=== PATIENT | female | born 1995 | race Two or more races ===

== ENCOUNTER 2017-02-03 20:04 | Emergency (ER) | payer SELFPAY ==
[~2017-02-03] VITALS: Ht 177.8 cm; Wt 104.3 kg
[2017-02-03 20:17] VITALS: BP 153/103
[2017-02-03] MEDS ORDERED: CYCL10TA2 PO (20:43)
[2017-02-03] MEDS ORDERED: IBUP-1060 PO (20:43)
--- NOTE | 2017-02-03 20:43 | PHYS DOC ---
Past Medical History Past Medical History: No Pertinent History Past Surgical History: Appendectomy Alcohol Use: Occasionally Drug Use: None Adult General Chief Complaint Chief Complaint: BACK PAIN OR INJURY [facility] HPI Patient is a 21 year old female presents to the emergency department stating that she has having left lower back pain and discomfort. She states the pain goes across her lower back area. She denies any loss of bowel or bladder. She denies any numbness or tingling down to her lower extremities. She does state however the back pain causes her to have increased difficulty with standing. Patient states that she took ibuprofen at home earlier approximately 800 mg. She states that she will with pain around 1:00. She states that she did lay back down and the pain seemed to alleviate some. However she states that she got up and started moving around the pain increased. Patient denies any history of back problems in the past. Review of Systems Review of Systems Constitutional: Denies fever or chills [] Eyes: Denies change in visual acuity, redness, or eye pain [] HENT: Denies nasal congestion or sore throat [] Respiratory: Denies cough or shortness of breath [] Cardiovascular: No additional information not addressed in HPI [] GI: Denies abdominal pain, nausea, vomiting, bloody stools or diarrhea [] : Denies dysuria or hematuria [] Musculoskeletal: back pain denies joint pain [] Integument: Denies rash or skin lesions [] Neurologic: Denies headache, focal weakness or sensory changes [] Endocrine: Denies polyuria or polydipsia [] Allergies Allergies Allergies Coded Allergies Type Severity Reaction Last Updated Verified No Known Drug Allergies 02/03/17 No Physical Exam Physical Exam Constitutional: Well developed, well nourished, no acute distress, non-toxic appearance. [] HENT: Normocephalic, atraumatic, bilateral external ears normal, oropharynx moist, no oral exudates, nose normal. [] Eyes: PERRLA, EOMI, conjunctiva normal, no discharge. [] Neck: Normal range of motion, no tenderness, supple, no stridor. [] Cardiovascular:Heart rate regular rhythm, no murmur [] Lungs & Thorax: Bilateral breath sounds clear to auscultation [] Skin: Warm, dry, no erythema, no rash. [] Back: left lower back tenderness, no thoracic spine or lumbar spine tenderness no crepitus no deformities and no step-offs noted. Extremities: No tenderness, no cyanosis, no clubbing, ROM intact, no edema. Patient with the inability to perform left leg raise completely. Patient has no difficulty with right leg raise. Peripheral pulses 2+ cap refill brisk less than 2 seconds. Neurologic: Alert and oriented X 3, normal motor function, normal sensory function, no focal deficits noted. [] Psychologic: Affect normal, judgement normal, mood normal. [] Current Patient Data Vital Signs Vital Signs Date Time Temp Pulse Resp B/P (MAP) Pulse Ox O2 Delivery O2 Flow Rate FiO2 02/03/17 20:17 97.4 113 20 98 Room Air 97.4 EKG EKG [] Radiology/Procedures Radiology/Procedures [] Course & Med Decision Making Course & Med Decision Making Pertinent Labs and Imaging studies reviewed. (See chart for details) Patient will be discharged home in stable condition she'll be provided with a prescription for Flexeril. She was instructed that this medication will cause drowsiness do not take any be alert and oriented. Patient was also instructed to use ibuprofen 800 mg every 8 hours with food patient was also recommended to use ice packs on 20 minutes off 20 minutes several times a day. Signs and symptoms to return back to the emergency department has been provided. [] Dragon Disclaimer Dragon Disclaimer This electronic medical record was generated, in whole or in part, using a voice recognition dictation system. Departure Departure Impression: Primary Impression: Back pain Disposition: 01 HOME, SELF-CARE Condition: STABLE Referrals: NO PCP (PCP) Patient Instructions: Back Pain, Adult, [id number] Additional Instructions: Activity as tolerated. Ibuprofen 800 mg every 8 hours with food stop taking few develop an upset stomach. Flexeril for muscle spasms this medication will cause drowsiness do not take any be alert and oriented. Ice packs on 20 minutes off 20 minutes several times a day. Follow-up to primary care physician in the next 7-10 days. Return back to emergency prior signs symptoms of become worse. Scripts Ibuprofen (IBUPROFEN) 800 Mg Tablet 800 MG PO PRN Q6HRS Y for INFLAMMATION, #30 TAB Prov: NATALYA HURST [employer] 02/03/17 Cyclobenzaprine Hcl (CYCLOBENZAPRINE HCL) 10 Mg Tablet 1 TAB PO TID Y for MUSCLE SPASMS, #30 TAB Prov: NATALYA HURST APRN 02/03/17 Problem Qualifiers Primary Impression: Back pain Back pain location: low back pain Chronicity: unspecified Back pain laterality: unspecified Sciatica presence: without sciatica Qualified Codes : M54.5 - Low back pain NATALYA HURST APRN Feb 03, 2017 20:43
[2017-02-03] MEDS ORDERED: CYCLOBENZAPRINE 10 MG TABLET. PO ONE (21:00)
== END 2017-02-03 20:58 | disposition home or self-care (01) ==
LOC: ER 20:04
DX: M54.5 Low back pain (principal)
CPT/HCPCS: 81025; 99283